=== PATIENT | female | born 1990 | race Caucasian/White ===

== ENCOUNTER 2023-11-14 12:55 | Outpatient (CLI) | payer BC ==
[2023-11-14] MEDS ORDERED: Sterile Water 10 ML ONE (14:32)
[2023-11-14] MEDS ORDERED: Bacteriostatic Normal Saline 30 ML VIAL ONE (14:32)
[2023-11-14] MEDS ORDERED: Sincalide 5 MCG VIAL ONE (14:32)
== END 2023-11-14 12:56 | disposition home or self-care (01) ==
LOC: NM 12:55
PROVIDERS: ATTEND Family Medicine Sports Medicine
DX: R10.11 Right upper quadrant pain (principal)
CPT/HCPCS: 78227; A9537; J2805